=== PATIENT | male | born 1995 | race Caucasian/White ===

== ENCOUNTER 2018-01-09 11:42 | Emergency (ER) | payer OTHER, SELFPAY ==
[2018-01-09 11:45] VITALS: BP 125/86; PULSE 77; RESP 12; TEMP 36.7; O2SAT 98; BMI 26.9
--- NOTE | 2018-01-09 12:04 | ED.WOUNDLAC ---
HPI - Wound/Laceration <BRIANNE Schneider - Last Filed: 01/09/18 22:13> General Chief Complaint: Wound/Laceration Stated Complaint: CUT FINGER ON RT HAND Time Seen by Provider: 01/09/18 12:03 Source: patient Mode of arrival: ambulatory Limitations: no limitations History of Present Illness HPI narrative: 22-year-old healthy male that is a nonsmoker here for complaint of laceration to his right index finger. An hour prior to arrival he was using a concrete wall grinder operator accidentally bumped his finger with a concrete wall grinder operator. He denies any other injuries or concerns. Increased pain with motion of the right finger. He does not know when his last tetanus was. Related Data Home Medications Medication Instructions Recorded Confirmed cetirizine 10 mg tablet 10 mg PO DAILY 08/21/17 08/21/17 Allergies Allergy/AdvReac Type Severity Reaction Status Date / Time No Known Drug Allergies Allergy Unverified 08/21/17 18:08 Review of Systems <BRIANNE Schneider - Last Filed: 01/09/18 22:13> Constitutional Denies chills, Denies fever(s), Denies lethargy and Denies weakness Eyes Denies change in vision, Denies eye discharge, Denies irritation and Denies loss of vision Cardiovascular Denies chest pain, Denies irregular heart rhythm, Denies lightheadedness, Denies palpitations, Denies dyspnea, Denies dyspnea on exertion and Denies orthopnea Respiratory Denies cough, Denies dyspnea, Denies dyspnea on exertion and Denies wheezing Gastrointestinal Gastrointestinal: Denies abdominal pain, Denies change in bowel habits, Denies diarrhea, Denies nausea and Denies vomiting Genitourinary Denies hematuria, Denies flank pain, Denies urinary incontinence and Denies urinary urgency Musculoskeletal Comments: Laceration right index finger Integumentary/Breasts Denies pruritus, Denies erythema, Denies rash and Denies wounds Neurologic Denies confusion, Denies loss of vision and Denies weakness Psychiatric Denies anxiety, Denies confusion, Denies depression, Denies homicidal ideation and Denies suicidal ideation Endocrine Denies palpitations Hematologic/Lymphatic Denies easy bruising Allergic/Immunologic Denies wheezing Exam <BRIANNE Schneider Last Filed: 01/09/18 22:13> Initial Vital Signs Initial Vital Signs: Vital Signs Temperature 98.1 F 01/09/18 11:45 Pulse Rate 77 01/09/18 11:45 Respiratory Rate 12 01/09/18 11:45 Blood Pressure 125/86 01/09/18 11:45 Pulse Oximetry 98 01/09/18 11:45 Const General: cooperative and well developed Nutritional Appearance: well nourished Orientation: alert, awake, oriented x3 and not confused [facility] Mouth: oral mucosae normal and moist mucous membranes Eyes Conjunctivae: conjunctivae normal Sclera: sclerae normal Pupils: PERRL EOM: EOM intact bilaterally Resp Effort & Inspection: normal respiratory effort, able to speak in complete sentences, no respiratory distress and no use of accessory muscles Auscultation: clear to auscultation bilaterally, no rales, no rhonchi and no wheezes Cardio Rate: regular rate Rhythm: regular rhythm Heart Sounds: no click, no gallops, no murmurs and no rubs Pulses: normal peripheral pulses Skin General: no rashes or lesions noted, No jaundice and No petechiae Neuro General: alert, oriented x3, gait normal and no focal motor deficits Speech: speech normal Extrem Other: 1 cm laceration to the right index finger on the dorsal aspect of the pip. Distal sensation is intact. Distal cap refill less than 2 sec. Full range of motion. <Eliot Vallejo DO - Last Filed: 01/11/18 08:32> Initial Vital Signs Initial Vital Signs: Vital Signs Temperature 98.1 F 01/09/18 11:45 Pulse Rate 77 01/09/18 11:45 Respiratory Rate 12 01/09/18 11:45 Blood Pressure 125/86 01/09/18 11:45 Pulse Oximetry 98 01/09/18 11:45 Procedures <BRIANNE Schneider - Last Filed: 01/09/18 22:13> Laceration Repair Laceration 1: Site: upper extremity and other (Right index finger dorsal aspect of the PIP) Side (If applicable): right Size (cm): 1 Description: linear Depth: simple, single layer Local Anesthetic: lidocaine 1% Amount of anesthesia used (mL): 2 Pre-repair: wound explored, irrigated extensively and deep structures intact Skin layer closed with: nylon Size (cm): 5-0 Number of sutures: 2 Technique: simple, interrupted Course <BRIANNE Schneider - Last Filed: 01/09/18 22:13> Orders Ordered: Discontinued Medications Diphtheria/Tetanus/Acell Pertussis (Adacel) 0.5 ml IM .ONCE ONE Stop: 01/09/18 12:09 Last Admin: 01/09/18 12:45 Dose: 0.5 ml Vital Signs - 8 hr 01/09/18 11:45 Temperature 98.1 F Pulse Rate 77 Respiratory Rate 12 Blood Pressure 125/86 Pulse Oximetry 98 <Eliot Vallejo DO - Last Filed: 01/11/18 08:32> Orders Ordered: Discontinued Medications Diphtheria/Tetanus/Acell Pertussis (Adacel) 0.5 ml IM .ONCE ONE Stop: 01/09/18 12:09 Last Admin: 01/09/18 12:45 Dose: 0.5 ml Vital Signs - 8 hr 01/09/18 11:45 Temperature 98.1 F Pulse Rate 77 Respiratory Rate 12 Blood Pressure 125/86 Pulse Oximetry 98 MDM - Wound/Laceration <BRIANNE Schneider - Last Filed: 01/09/18 22:13> MDM Narrative Medical decision making narrative: Laceration right index finger was irrigated with 500 mL normal saline. Wound closed with 2 simple interrupted 5-0 nylon sutures no complications. The wound dressed with bacitracin and a dressing. Splint is applied finger to reduce stress on the laceration area. Sutures out in 7-10 days. Tetanus was updated in the emergency room. [id number] Tylenol or Motrin as needed for any discomfort. Keep wound area clean and dry for 36 hr. After 36 hr may shower briefly. Dry wound after shower redressed wound with bacitracin dressing. Dress wound daily with bacitracin and dressing until healed. For any worsening symptoms or signs of infection return to the emergency room. Discharge Plan Departure Patient Disposition: Home Clinical Impression: Laceration of right index finger Discharge Date/Time: 01/09/18 13:05 Interventions: ED Discharge Assessment Last Done: 01/09/18 13:05 Instructions: DI for Laceration Repair Activity Restrictions/Additional Instructions: Laceration of the right index finger was then closed with 2 sutures. Sutures out in 7-10 days. Tetanus was updated in the emergency room. [id number] Tylenol or Motrin as needed for any discomfort. Keep wound area clean and dry for 36 hr. After 36 hr may shower briefly. Dry wound after shower redressed wound with bacitracin dressing. Dress wound daily with bacitracin and dressing until healed. For any worsening symptoms or signs of infection return to the emergency room. Prescriptions: No Action cetirizine [Zyrtec] 10 mg tablet 10 mg PO DAILY RF: 0 Referrals: [facility] [Provider Group] <Eliot Vallejo DO - Last Filed: 01/11/18 08:32> Cosign ED Attending Heather Attestation: I was immediately available in the department for consultation. Documentation has been reviewed. I agree with assessment and plan.
--- NOTE | 2018-01-09 12:34 | ED_ITS ---
HPI - Wound/Laceration <BRIANNE Schneider - Last Filed: 01/09/18 22:13> General Chief Complaint: Wound/Laceration Stated Complaint: CUT FINGER ON RT HAND Time Seen by Provider: 01/09/18 12:03 Source: patient Mode of arrival: ambulatory Limitations: no limitations History of Present Illness HPI narrative: 22-year-old healthy male that is a nonsmoker here for complaint of laceration to his right index finger. An hour prior to arrival he was using a jig grinder set up operator accidentally bumped his finger with a jig grinder set up operator. He denies any other injuries or concerns. Increased pain with motion of the right finger. He does not know when his last tetanus was. Related Data Home Medications Medication Instructions Recorded Confirmed cetirizine 10 mg tablet 10 mg PO DAILY 08/21/17 08/21/17 Allergies Allergy/AdvReac Type Severity Reaction Status Date / Time No Known Drug Allergies Allergy Unverified 08/21/17 18:08 Review of Systems <BRIANNE Schneider - Last Filed: 01/09/18 22:13> Constitutional Denies chills, Denies fever(s), Denies lethargy and Denies weakness Eyes Denies change in vision, Denies eye discharge, Denies irritation and Denies loss of vision Cardiovascular Denies chest pain, Denies irregular heart rhythm, Denies lightheadedness, Denies palpitations, Denies dyspnea, Denies dyspnea on exertion and Denies orthopnea Respiratory Denies cough, Denies dyspnea, Denies dyspnea on exertion and Denies wheezing Gastrointestinal Gastrointestinal: Denies abdominal pain, Denies change in bowel habits, Denies diarrhea, Denies nausea and Denies vomiting Genitourinary Denies hematuria, Denies flank pain, Denies urinary incontinence and Denies urinary urgency Musculoskeletal Comments: Laceration right index finger Integumentary/Breasts Denies pruritus, Denies erythema, Denies rash and Denies wounds Neurologic Denies confusion, Denies loss of vision and Denies weakness Psychiatric Denies anxiety, Denies confusion, Denies depression, Denies homicidal ideation and Denies suicidal ideation Endocrine Denies palpitations Hematologic/Lymphatic Denies easy bruising Allergic/Immunologic Denies wheezing Exam <BRIANNE Schneider Last Filed: 01/09/18 22:13> Initial Vital Signs Initial Vital Signs: Vital Signs Temperature 98.1 F 01/09/18 11:45 Pulse Rate 77 01/09/18 11:45 Respiratory Rate 12 01/09/18 11:45 Blood Pressure 125/86 01/09/18 11:45 Pulse Oximetry 98 01/09/18 11:45 Const General: cooperative and well developed Nutritional Appearance: well nourished Orientation: alert, awake, oriented x3 and not confused [facility] Mouth: oral mucosae normal and moist mucous membranes Eyes Conjunctivae: conjunctivae normal Sclera: sclerae normal Pupils: PERRL EOM: EOM intact bilaterally Resp Effort & Inspection: normal respiratory effort, able to speak in complete sentences, no respiratory distress and no use of accessory muscles Auscultation: clear to auscultation bilaterally, no rales, no rhonchi and no wheezes Cardio Rate: regular rate Rhythm: regular rhythm Heart Sounds: no click, no gallops, no murmurs and no rubs Pulses: normal peripheral pulses Skin General: no rashes or lesions noted, No jaundice and No petechiae Neuro General: alert, oriented x3, gait normal and no focal motor deficits Speech: speech normal Extrem Other: 1 cm laceration to the right index finger on the dorsal aspect of the pip. Distal sensation is intact. Distal cap refill less than 2 sec. Full range of motion. <Eliot Vallejo DO - Last Filed: 01/11/18 08:32> Initial Vital Signs Initial Vital Signs: Vital Signs Temperature 98.1 F 01/09/18 11:45 Pulse Rate 77 01/09/18 11:45 Respiratory Rate 12 01/09/18 11:45 Blood Pressure 125/86 01/09/18 11:45 Pulse Oximetry 98 01/09/18 11:45 Procedures <BRIANNE Schneider - Last Filed: 01/09/18 22:13> Laceration Repair Laceration 1: Site: upper extremity and other (Right index finger dorsal aspect of the PIP) Side (If applicable): right Size (cm): 1 Description: linear Depth: simple, single layer Local Anesthetic: lidocaine 1% Amount of anesthesia used (mL): 2 Pre-repair: wound explored, irrigated extensively and deep structures intact Skin layer closed with: nylon Size (cm): 5-0 Number of sutures: 2 Technique: simple, interrupted Course <BRIANNE Schneider - Last Filed: 01/09/18 22:13> Orders Ordered: Discontinued Medications Diphtheria/Tetanus/Acell Pertussis (Adacel) 0.5 ml IM .ONCE ONE Stop: 01/09/18 12:09 Last Admin: 01/09/18 12:45 Dose: 0.5 ml Vital Signs - 8 hr 01/09/18 11:45 Temperature 98.1 F Pulse Rate 77 Respiratory Rate 12 Blood Pressure 125/86 Pulse Oximetry 98 <Eliot Vallejo DO - Last Filed: 01/11/18 08:32> Orders Ordered: Discontinued Medications Diphtheria/Tetanus/Acell Pertussis (Adacel) 0.5 ml IM .ONCE ONE Stop: 01/09/18 12:09 Last Admin: 01/09/18 12:45 Dose: 0.5 ml Vital Signs - 8 hr 01/09/18 11:45 Temperature 98.1 F Pulse Rate 77 Respiratory Rate 12 Blood Pressure 125/86 Pulse Oximetry 98 MDM - Wound/Laceration <BRIANNE Schneider - Last Filed: 01/09/18 22:13> MDM Narrative Medical decision making narrative: Laceration right index finger was irrigated with 500 mL normal saline. Wound closed with 2 simple interrupted 5-0 nylon sutures no complications. The wound dressed with bacitracin and a dressing. Splint is applied finger to reduce stress on the laceration area. Sutures out in 7-10 days. Tetanus was updated in the emergency room. [id number] Tylenol or Motrin as needed for any discomfort. Keep wound area clean and dry for 36 hr. After 36 hr may shower briefly. Dry wound after shower redressed wound with bacitracin dressing. Dress wound daily with bacitracin and dressing until healed. For any worsening symptoms or signs of infection return to the emergency room. Discharge Plan Departure Patient Disposition: Home Clinical Impression: Laceration of right index finger Discharge Date/Time: 01/09/18 13:05 Interventions: ED Discharge Assessment Last Done: 01/09/18 13:05 Instructions: DI for Laceration Repair Activity Restrictions/Additional Instructions: Laceration of the right index finger was then closed with 2 sutures. Sutures out in 7-10 days. Tetanus was updated in the emergency room. [id number] Tylenol or Motrin as needed for any discomfort. Keep wound area clean and dry for 36 hr. After 36 hr may shower briefly. Dry wound after shower redressed wound with bacitracin dressing. Dress wound daily with bacitracin and dressing until healed. For any worsening symptoms or signs of infection return to the emergency room. Prescriptions: No Action cetirizine [Zyrtec] 10 mg tablet 10 mg PO DAILY RF: 0 Referrals: [facility] [Provider Group] <Eliot Vallejo DO - Last Filed: 01/11/18 08:32> Cosign ED Attending Heather Attestation: I was immediately available in the department for consultation. Documentation has been reviewed. I agree with assessment and plan.
[2018-01-09] MEDS: TET,DIPH,PERTUSS(ACELL),VAC/PF 0.5 ML SYRINGE IM (12:45)
[2018-01-09 13:05] VITALS: BP 121/78; PULSE 75; RESP 13; O2SAT 97
== END 2018-01-09 13:05 | disposition home or self-care (01) ==
PROVIDERS: Emergency Provider Nurse Practitioner Family
DX: S61.210A Laceration without foreign body of right index finger without damage to nail, initial encounter (principal); W31.1XXA Contact with metalworking machines, initial encounter
CPT/HCPCS: 12001; 29130; 90471; 99283; 90715

== ENCOUNTER → 2018-09-17 08:17 | Outpatient (CLI) | payer OTHER, SELFPAY ==
[2018-09-17 08:56] LABS: Hematocrit 45.3 % (41-53); Hemoglobin 15.7 g/dL (13.5-17.5); Mean Corpuscular HGB Conc 34.7 % (30-36); Mean Corpuscular Hemoglobin 29.3 PG (26-34); Mean Corpuscular Volume 84.6 fL (80-100); Platelet Count 255 X10^3/uL (150-400); Red Blood Cell Count 5.35 X10^6/uL (4.5-5.9); Red Cell Distribution Width 13.2 % (11.6-14.8); White Blood Cell Count 8.4 X10^3/uL (4.5-11.0)
[2018-09-17 09:11] LABS: Neutrophils Absolute Manual 4200 /uL (3000-5900); RBC Morphology Normal Morphology; Total Cells Counted 100
[2018-09-17 09:18] LABS: Appearance Urine UA CLEAR; Bilirubin Urine UA NEGATIVE (NEGATIVE); Color Urine UA YELLOW; Glucose Urine UA NEGATIVE (Negative); Ketones Urine UA NEGATIVE (NEGATIVE); Leukocyte Esterase Urine UA NEGATIVE (NEGATIVE); Nitrite Urine UA NEGATIVE (Negative); Occult Blood Urine UA NEGATIVE (Negative); Protein Urine UA NEGATIVE (Negative); Specific Gravity Urine UA 1.025 (1.000-1.035); Urobilinogen Urine UA 0.2 E.U./dL (0.2); pH Urine UA 5.5 (4.5-8.0)
[2018-09-17 09:24] LABS: Alanine Aminotransferase 42 IU/L (21-72); Albumin 4.7 g/dL (3.5-5.0); Albumin Globulin Ratio 1.5 (1.0-2.8); Alkaline Phosphatase 93 U/L (38-126); Aspartate Aminotransferase 41 IU/L (17-59); BUN Creatinine Ratio 23.6 (6-22); Bilirubin Total 0.4 mg/dL (0.2-1.3); Blood Urea Nitrogen 26 mg/dL (9-20); Calcium 9.3 mg/dL (8.4-10.2); Carbon Dioxide 27 mmol/L (22-32); Chloride 104 mmol/L (98-107); Cholesterol 190 mg/dL (140-199); Estimated Glomerular Filt Rate > 60.0 mL/min (>60); Globulin 3.2 g/dL (1.7-4.1); Glucose 100 mg/dL (70-100); HDL Cholesterol 55 mg/dL (40-60); HEMOLYSIS < 15 (0-50); LDL Cholesterol Calculated 122 mg/dL (<100); Potassium 4.8 mmol/L (3.4-5.1); Sodium 139 mmol/L (137-145); Total Protein 7.9 g/dL (6.3-8.2); Triglycerides 64 mg/dL (35-150)
[2018-09-17 09:49] LABS: Thyroid Stimulating Hormone 1.72 uIU/mL (0.47-4.68)
== END ==
PROVIDERS: PCP Family Medicine; Visit Provider Family Medicine
DX: Z00.00 Encounter for general adult medical examination without abnormal findings (principal); Z13.220 Encounter for screening for lipoid disorders; Z13.29 Encounter for screening for other suspected endocrine disorder
CPT/HCPCS: 36415; 80053; 80061; 81003; 84443; 85025

== ENCOUNTER 2020-03-02 11:03 | Emergency (ER) | payer OTHER, SELFPAY ==
[2020-03-02 11:10] VITALS: BP 132/63; PULSE 98; RESP 18; TEMP 36.7; O2SAT 98; BMI 26.6
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
--- NOTE | 2020-03-02 11:22 | DI.CT.S_ITS ---
PROCEDURE: CT HEAD/BRAIN WO CON INDICATIONS: head injury, syncope TECHNIQUE: Noncontrast 4.5 mm thick angled axial sections acquired from the foramen magnum to the vertex, with coronal and sagittal reformats. For radiation dose reduction, the following was used: automated exposure control, adjustment of mA and/or kV according to patient size. COMPARISON: [facility], , CT HEAD W/O CONTRAST, 03/10/2005, 12:01. FINDINGS: Image quality: Excellent. CSF spaces: Basal cisterns are patent. No extra-axial fluid collections. Ventricles are normal in size and shape. Brain: No midline shift. No intracranial masses or hemorrhage. Moreland-white matter interface is normal. Skull and face: Calvarium and visualized facial bones are intact, without suspicious lesions. Sinuses: Visualized sinuses and mastoids are clear. IMPRESSION: No acute intracranial hemorrhage is seen. No acute intracranial process is seen. Dictated by: Joshua Partida M.D. on 03/02/2020 at 10:42 Approved by: Joshua Partida M.D. on 03/02/2020 at 10:44
[2020-03-02 11:35] LABS: Add Manual Diff / Slide Review NO; Basophils Absolute Auto 0 /uL (0-100); Basophils Percent Auto 0.2 % (0-2); Eosinophils Absolute Auto 0 /uL (0-450); Eosinophils Percent Auto 0.3 % (2-4); Hematocrit 46.8 % (41-53); Lymphocytes Absolute Auto 1300 /uL (1100-4500); Lymphocytes Percent Auto 14.9 % (25-40); Mean Corpuscular HGB Conc 34.2 % (30-36); Mean Corpuscular Hemoglobin 29.5 PG (26-34); Mean Corpuscular Volume 86.2 fL (80-100); Monocytes Absolute Auto 600 /uL (0-900); Monocytes Percent Auto 7.2 % (3-14); Neutrophils Absolute Auto 6600 /uL (1500-7000); Neutrophils Percent Auto 77.4 % (50-75); Platelet Count 260 X10^3/uL (150-400); Red Blood Cell Count 5.43 X10^6/uL (4.5-5.9); Red Cell Distribution Width 12.6 % (11.6-14.8); White Blood Cell Count 8.5 X10^3/uL (4.5-11.0)
[2020-03-02 11:47] LABS: Alanine Aminotransferase 42 IU/L (<50); Albumin 4.9 g/dL (3.5-5.0); Albumin Globulin Ratio 1.4 (1.0-2.8); Alkaline Phosphatase 81 U/L (38-126); Aspartate Aminotransferase 45 IU/L (17-59); BUN Creatinine Ratio 15.4 (6-22); Bilirubin Total 0.4 mg/dL (0.2-1.3); Blood Urea Nitrogen 19 mg/dL (9-20); Calcium 9.3 mg/dL (8.4-10.2); Carbon Dioxide 28 mmol/L (22-32); Chloride 105 mmol/L (98-107); Estimated Glomerular Filt Rate > 60.0 mL/min (>60); Globulin 3.5 g/dL (1.7-4.1); Glucose 99 mg/dL (70-100); HEMOLYSIS < 15 (0-50); Potassium 4.5 mmol/L (3.4-5.1); Sodium 141 mmol/L (137-145); Total Protein 8.4 g/dL (6.3-8.2)
[2020-03-02] MEDS: SODIUM CHLORIDE 0.9% 1,000 ML 1000 ML IV (11:47)
[2020-03-02] MEDS: LIDO 1%/SOD BICARB 8.4% (10ML) 10 ML SYRINGE INJ (11:50)
--- NOTE | 2020-03-02 12:42 | DI.RAD.S_ITS ---
PROCEDURE: XR HAND RT 2V INDICATIONS: POST REDUCTION TECHNIQUE: 3 views of the hand(s) acquired. COMPARISON: [facility], , XR HAND RT MIN 3V, 03/02/2020, 11:28. FINDINGS: Bones: Closed reduction of 5th metacarpal shaft fracture. Alignment is near anatomic. The right hand is in a plaster cast. Carpal bones are normally aligned. No suspicious bony lesions. Soft tissues: No suspicious soft tissue calcifications. IMPRESSION: Improved alignment post closed reduction of 5th metacarpal shaft fracture. Dictated by: Naomi Black M.D. on 03/02/2020 at 12:57 Approved by: Naomi Black M.D. on 03/02/2020 at 12:59
[2020-03-02 12:47] VITALS: BP 126/75; PULSE 95; RESP 16; O2SAT 99
== END 2020-03-02 13:20 | disposition home or self-care (01) ==
PROVIDERS: Emergency Provider Emergency Medicine
DX: S62.324A Displaced fracture of shaft of fourth metacarpal bone, right hand, initial encounter for closed fracture (principal); R55 Syncope and collapse; R42 Dizziness and giddiness; S09.90XA Unspecified injury of head, initial encounter; Y04.2XXA Assault by strike against or bumped into by another person, initial encounter
CPT/HCPCS: 26742; 29125; 36415; 70450; 73120; 73130; 80053; 85025; 93005; 96360; 99284

== ENCOUNTER → 2023-01-12 18:50 | Outpatient (CLI) | payer OTHER, SELFPAY | PROVIDERS: Visit Provider Physician Assistant | DX: J02.9 Acute pharyngitis, unspecified (principal) | CPT/HCPCS: 87070 ==